=== PATIENT | female | born 1995 | race Caucasian/White ===

== ENCOUNTER → 2024-08-19 11:25 | Outpatient (BNVA) | payer OTHER, SELFPAY | PROVIDERS: Visit Provider Physician Assistant | DX: O9A.213 Injury, poisoning and certain other consequences of external causes complicating pregnancy, third trimester (principal); S00.83XA Contusion of other part of head, initial encounter; Z3A.29 29 weeks gestation of pregnancy; W50.0XXA Accidental hit or strike by another person, initial encounter; Z02.79 Encounter for issue of other medical certificate | CPT/HCPCS: 99203 ==